=== PATIENT | female | born 1985 | race Caucasian/White ===

== ENCOUNTER 2018-08-22 16:31 | Emergency (ER) | payer MEDICAID ==
[~2018-08-22] VITALS: Ht 160 cm; Wt 69.5 kg
[~2018-08-22 16:31] MED LIST: METR-159 PO; PNV1TABL55 PO; ZOF4T PO
[2018-08-22 16:38] VITALS: BP 111/72
== END 2018-08-22 17:29 | disposition home or self-care (01) ==
LOC: ER 16:32
DX: O26.893 Other specified pregnancy related conditions, third trimester (principal); R10.9 Unspecified abdominal pain; F12.90 Cannabis use, unspecified, uncomplicated; F15.90 Other stimulant use, unspecified, uncomplicated; Z88.2 Allergy status to sulfonamides; Z79.899 Other long term (current) drug therapy; Z3A.28 28 weeks gestation of pregnancy
CPT/HCPCS: 99284

== ENCOUNTER 2019-01-20 14:29 | Emergency (ER) | payer MEDICAID ==
[~2019-01-20] VITALS: Ht 170.2 cm; Wt 62.0 kg
[2019-01-20 14:40] VITALS: BP 123/81
== END 2019-01-20 14:52 | disposition home or self-care (01) ==
LOC: ER 14:29
DX: F15.10 Other stimulant abuse, uncomplicated (principal); F12.90 Cannabis use, unspecified, uncomplicated; Z88.2 Allergy status to sulfonamides; Z88.8 Allergy status to other drugs, medicaments and biological substances; Z79.899 Other long term (current) drug therapy
CPT/HCPCS: 99281

== ENCOUNTER 2019-12-18 16:59 | Emergency (ER) | payer MEDICAID ==
[~2019-12-18] VITALS: Ht 170.2 cm; Wt 64.5 kg
[2019-12-18 17:11] VITALS: BP 115/81
== END 2019-12-18 18:15 | disposition home or self-care (01) ==
LOC: ER 17:00
DX: O26.891 Other specified pregnancy related conditions, first trimester (principal); F12.90 Cannabis use, unspecified, uncomplicated; F15.90 Other stimulant use, unspecified, uncomplicated; Z3A.12 12 weeks gestation of pregnancy; Z88.1 Allergy status to other antibiotic agents; Z88.8 Allergy status to other drugs, medicaments and biological substances; Z79.899 Other long term (current) drug therapy
CPT/HCPCS: 76815; 99284

== ENCOUNTER 2020-01-25 02:26 | Emergency (ER) | payer MEDICAID ==
[~2020-01-25] VITALS: Ht 172.7 cm; Wt 66.8 kg
[2020-01-25 03:49] VITALS: BP 124/81
== END 2020-01-25 03:53 | disposition home or self-care (01) ==
LOC: ER 02:26
DX: O26.892 Other specified pregnancy related conditions, second trimester (principal); R53.1 Weakness; R43.8 Other disturbances of smell and taste; Z20.828 Contact with and (suspected) exposure to other viral communicable diseases; F12.90 Cannabis use, unspecified, uncomplicated; F15.90 Other stimulant use, unspecified, uncomplicated; Z00.8 Encounter for other general examination; Z3A.17 17 weeks gestation of pregnancy; Z88.1 Allergy status to other antibiotic agents; Z88.8 Allergy status to other drugs, medicaments and biological substances; Z79.899 Other long term (current) drug therapy
CPT/HCPCS: 87635; 99283; C9803

== ENCOUNTER 2020-04-13 14:36 | Emergency (ER) | payer MEDICAID ==
[~2020-04-13] VITALS: Ht 162.6 cm; Wt 75.0 kg
[2020-04-13 14:45] VITALS: BP 120/71
--- NOTE | 2020-04-13 15:24 | NUR ---
Patient seen and assessed by provider.
== END 2020-04-13 15:36 | disposition home or self-care (01) ==
LOC: ER 14:37
DX: O26.93 Pregnancy related conditions, unspecified, third trimester (principal); F12.90 Cannabis use, unspecified, uncomplicated; F15.90 Other stimulant use, unspecified, uncomplicated; Z3A.29 29 weeks gestation of pregnancy; Z79.2 Long term (current) use of antibiotics; Z88.8 Allergy status to other drugs, medicaments and biological substances; Z79.899 Other long term (current) drug therapy
CPT/HCPCS: 99283

== ENCOUNTER 2020-04-27 18:08 | Emergency (ER) | payer MEDICAID ==
[~2020-04-27] VITALS: Ht 170.2 cm; Wt 74.0 kg
[2020-04-27 19:26] VITALS: BP 121/80
== END 2020-04-27 19:27 | disposition home or self-care (01) ==
LOC: ER 18:09
DX: Z02.89 Encounter for other administrative examinations (principal); F15.10 Other stimulant abuse, uncomplicated; F12.90 Cannabis use, unspecified, uncomplicated; Z88.1 Allergy status to other antibiotic agents; Z88.8 Allergy status to other drugs, medicaments and biological substances; Z79.899 Other long term (current) drug therapy
CPT/HCPCS: 99281

== ENCOUNTER 2021-02-02 12:44 | Emergency (ER) | payer MEDICAID | END 2021-02-02 13:58 | disposition left against medical advice (07) | LOC: ER 12:45 | DX: H92.09 Otalgia, unspecified ear (principal); Z53.21 Procedure and treatment not carried out due to patient leaving prior to being seen by health care provider ==

== ENCOUNTER 2023-07-23 12:53 | Emergency (ER) | payer MEDICAID ==
[~2023-07-23] VITALS: Ht 170.2 cm; Wt 72.0 kg
[2023-07-23 15:03] LABS: BASOPHILS % (AUTO) 0.2 % (0-1); EOSINOPHILS % (AUTO) 0.1 % (0-6); HEMATOCRIT 39.4 % (35.0-45.0); HEMOGLOBIN 13.1 g/dl (12.0-16.0); LYMPHOCYTES # (AUTO) 1.2 X10'3 (1.1-4.8); LYMPHOCYTES % (AUTO) 12.5 % (21-51); MEAN CORPUSCULAR HEMOGLOBIN 28.2 PG (27.0-31.0); MEAN CORPUSCULAR HGB CONC 33.3 g/dL (33.0-36.5); MEAN CORPUSCULAR VOLUME 84.6 FL (78-98); MEAN PLATELET VOLUME 8.8 FL (7.4-10.4); MONOCYTES # (AUTO) 0.7 X10'3 (0-0.9); MONOCYTES % (AUTO) 7.5 % (2-12); NEUTROPHILS # (AUTO) 7.6 X10'3 (1.8-7.7); NEUTROPHILS % (AUTO) 79.7 % (42-75); PLATELET COUNT 250 X10'3 (140-440); RED BLOOD COUNT 4.66 X10'6 (4.20-5.60); RED CELL DISTRIBUTION WIDTH 14.5 % (11.5-14.5); WHITE BLOOD COUNT 9.6 X10'3 (4.5-11.0)
[2023-07-23 15:12] LABS: ALBUMIN 3.7 G/DL (3.4-5.0); ANION GAP 9 (8-16); BLOOD UREA NITROGEN 7 MG/DL (7-18); CALCIUM 8.2 MG/DL (8.5-10.1); CHLORIDE 101 MMOL/L (99-107); CREATININE 0.78 MG/DL (0.40-0.90); GLUCOSE 99 MG/DL (70-104); LIPASE 32 U/L (16-77); POTASSIUM 3.9 MMOL/L (3.5-5.1); SODIUM 131 MMOL/L (135-145); TOTAL CARBON DIOXIDE 21.4 MMOL/L (24-32); eCRCL 94 ML/MIN; eGFR 82 ML/MIN
[2023-07-23 19:28] LABS: BILIRUBIN,URINE NEGATIVE (Neg); CLARITY,URINE CLOUDY (Clear); COLOR,URINE YELLOW (Yellow); GLUCOSE, URINE NEGATIVE (Neg); KETONES,URINE NEGATIVE (Neg); LEUKOCYTE ESTERASE ,URINE MODERATE (Neg); NITRITES, URINE POSITIVE (Neg); OCCULT BLOOD,URINE SMALL (Neg); PROTEIN,URINE 100 mg/dl (Neg); UROBILINOGEN,URINE 0.2 E.U/dL (0.2-1.0)
[2023-07-23 19:30] LABS: URINE HCG NEGATIVE (NEG)
[2023-07-23 19:45] LABS: UA COLLECTION TYPE VOIDED
[2023-07-23 19:47] LABS: BACTERIA,URINE 4+ /HPF (Neg); MUCUS STRANDS NONE SEEN /LPF (Neg); SQUAMOUS EPITHELIAL CELL,UR FEW /LPF (FEW); WBC,URINE TNTC /HPF (0-4)
[2023-07-23 19:49] LABS: WBC CLUMPS,URINE MODERATE /HPF (NEGATIVE)
[2023-07-23] MEDS ORDERED: CEPH-585 PO (20:03)
[2023-07-23] MEDS: acetaminophen 325mg tablet PO ONE (20:17)
[2023-07-23] MEDS: ketorolac trometh. 30mg/ml inj. IM ONE (20:17)
[2023-07-23] MEDS: cephalexin 500mg capsule PO ONE (20:17)
[2023-07-23 20:51] VITALS: BP 106/59; PULSE 98; RESP 16; TEMP 98; O2SAT 98
== END 2023-07-23 20:54 | disposition home or self-care (01) ==
LOC: ER 12:53
DX: N10 Acute pyelonephritis (principal); F12.90 Cannabis use, unspecified, uncomplicated; F15.90 Other stimulant use, unspecified, uncomplicated; Z88.2 Allergy status to sulfonamides; Z79.2 Long term (current) use of antibiotics; Z79.899 Other long term (current) drug therapy
CPT/HCPCS: 36415; 80048; 81001; 81025; 83690; 85025; 87077; 87088; 87186; 96372; 99283; J1885

== ENCOUNTER 2024-04-08 19:02 | Emergency (ER) | payer MEDICAID ==
[~2024-04-08] VITALS: Ht 170.2 cm; Wt 63.6 kg
[~2024-04-08 19:02] MED LIST changes: +CEPH-585 PO
[2024-04-08 19:06] VITALS: BP 105/77; PULSE 114; RESP 18; O2SAT 98
[2024-04-08] MEDS ORDERED: DOXY100C43 PO (20:56)
[2024-04-08 21:03] VITALS: TEMP 98.9
[2024-04-08] MEDS: DOXYCYCLINE 100MG CAPSULE PO STA (21:08)
[2024-04-08] MEDS: ibuprofen tablet 400 MG TABLET PO ONE (21:08)
== END 2024-04-08 21:15 | disposition home or self-care (01) ==
LOC: ER 19:02
DX: L03.113 Cellulitis of right upper limb (principal); F12.90 Cannabis use, unspecified, uncomplicated; F15.90 Other stimulant use, unspecified, uncomplicated; Z88.2 Allergy status to sulfonamides
CPT/HCPCS: 87070; 87077; 87186; 99283